=== PATIENT | male | born 1975 | race Two or more races ===

== ENCOUNTER 2017-09-10 02:48 | Emergency (ER) | payer OTHER ==
[~2017-09-10] VITALS: Ht 167.6 cm; Wt 74.8 kg
[2017-09-10 02:48] VITALS: BP 133/86
== END 2017-09-10 04:11 ==
LOC: ER 02:53
DX: S02.40CA Maxillary fracture, right side, initial encounter for closed fracture (principal); Y04.8XXA Assault by other bodily force, initial encounter; Y93.89 Activity, other specified; Y92.89 Other specified places as the place of occurrence of the external cause; Y99.8 Other external cause status
CPT/HCPCS: 70450-TC; 70486-TC; A4606; Z7610